=== PATIENT | female | born 1935 | race Caucasian/White ===

== ENCOUNTER 2020-12-03 12:05 | Day surgery (SDC) | payer MEDICARE, OTHER ==
[~2020-12-03] VITALS: Ht 162.6 cm; Wt 86.9 kg
[~2020-12-03 12:05] MED LIST: AMIT25 PO; AMOCLA875 PO; ASPI81CH PO; ASPI81EC; ASPI81EC PO; ATOR10; ATOR20 PO; Amoxicillin500 MG; CELE200; CEPH250A PO; CEPH500 PO; CHOL10002 PO; CYAN500 PO; CYCL10 PO; DIGO.125; DIGO.125 PO; DISO150 PO; DOCU100 PO; DOXA4 PO; ELIQUIS5 MG; ERGO400 PO; ESOM20 PO; FURO40; GABA100 PO; LISI20; LISI20 PO; LORA.5 PO; LORA1; LORA1 PO; METO100; METO100 PO; METO100ER; METO50 PO; Nexium40 MG; OMEP20ER; OXYACE7.5T PO; OXYC10TA19 PO; POTA8; Percocet 5-3251 EACH PO; SPIR25; SPIR25 PO; TEMA15; TEMA15 PO; TEMA30; TEMA30 PO; UBID10 PO; VIT B12; WARF2.5 PO; WARF5 PO; Zofran Odt4 MG SL; [UNRECOGNIZED DRUG - CODE]; [UNRECOGNIZED DRUG - CODE] PO
[2020-12-03] MEDS ORDERED: ATORVASTATIN CA20 MG PO (13:06)
[2020-12-03] MEDS ORDERED: DOXAZOSIN MESYLA4 M2 PO (13:07)
[2020-12-03] MEDS ORDERED: Restoril7.5 MG PO (13:07)
[2020-12-03] MEDS ORDERED: LISI20 PO (13:07)
[2020-12-03] MEDS ORDERED: DISOPYRAMIDE PO (13:07)
[2020-12-03] MEDS ORDERED: SPIRONOLACTONE25 MG PO (13:08)
--- NOTE | 2020-12-03 13:58 | NUR ---
12/03/20 1358 Helen Tillman DISCUSSION BETWEEN PATIENT AND DR MAHMOOD AND DECISION WAS MADE TO TRY IV VERSED TO SEE IF THE PATIENT COULD RELAX ENOUGH TO ALLOW BP DONE ON MACHINE. PATIENT IS IN AGREEMENT AND EXCITED AND READY TO TRY THIS. IV VERSED WAS GIVEN AT 1352 AND DARNELL CASAS WHO WILL BE HER SEDATION NURSE IS IN AND EVALUATING PATIENT AT THIS TIME. PATIENT IS STABLE
[2020-12-07] MEDS ORDERED: METO50ER PO (09:15)
== END 2020-12-03 15:11 | disposition home or self-care (01) ==
LOC: ORSCSDS 12:05
PROVIDERS: Internal Medicine Gastroenterology
PROC: 0DB68ZX Excision of Stomach, Via Natural or Artificial Opening Endoscopic, Diagnostic (ICD-10-PCS; principal; 2020-12-03 13:15)
PROC: 0DB58ZX Excision of Esophagus, Via Natural or Artificial Opening Endoscopic, Diagnostic (ICD-10-PCS; principal; 2020-12-03 13:15)
DX: K21.00 Gastro-esophageal reflux disease with esophagitis, without bleeding (principal); K21.9 Gastro-esophageal reflux disease without esophagitis; I10 Essential (primary) hypertension; K31.7 Polyp of stomach and duodenum; I48.91 Unspecified atrial fibrillation; K22.2 Esophageal obstruction; K44.9 Diaphragmatic hernia without obstruction or gangrene; F41.9 Anxiety disorder, unspecified; E78.5 Hyperlipidemia, unspecified; E66.9 Obesity, unspecified; Z68.33 Body mass index [BMI] 33.0-33.9, adult; Z79.899 Other long term (current) drug therapy
CPT/HCPCS: 88305; 88342; J2250; J2704; J7120

== ENCOUNTER 2020-12-06 21:34 | Inpatient (IN) | payer OTHER ==
[~2020-12-06] VITALS: Ht 162.6 cm; Wt 87.3 kg
[~2020-12-06 21:34] MED LIST changes: +ATORVASTATIN CA20 MG PO; +DISOPYRAMIDE PO; +DOXAZOSIN MESYLA4 M2 PO; +Restoril7.5 MG PO; +SPIRONOLACTONE25 MG PO
[2020-12-06 22:27] LABS: BASOPHILS ABSOLUTE AUTO 0.03 K/mm3 (0.00-0.23); BASOPHILS PERCENT AUTO 0 % (0-2); EOSINOPHILS ABSOLUTE AUTO 0.06 K/mm3 (0.00-0.68); EOSINOPHILS PERCENT AUTO 1 % (0-6); Hematocrit 39.2 % (33.0-51.0); Hemoglobin 14.6 g/dL (11.5-16.0); IMMATURE GRAN ABSOLUTE AUTO 0.03 K/mm3 (0.00-0.10); IMMATURE GRAN PERCENT AUTO 0 % (0-1); LYMPHOCYTES ABSOLUTE AUTO 2.75 K/mm3 (0.84-5.20); LYMPHOCYTES PERCENT AUTO 24 % (21-46); MONOCYTES ABSOLUTE AUTO 1.12 K/mm3 (0.16-1.47); MONOCYTES PERCENT AUTO 10 % (4-13); Mean Corpuscular HGB 32.4 pg (26.0-34.0); Mean Corpuscular HGB Conc 37.2 g/dL (31.5-36.5); Mean Corpuscular Volume 87 fL (80-100); Mean Platelet Volume 9.8 fL (9.1-12.4); NEUTROPHILS ABSOLUTE AUTO 7.62 K/mm3 (1.96-9.15); NEUTROPHILS PERCENT AUTO 66 % (41-73); Platelet Count 258 K/mm3 (150-400); RDW Standard Deviation 38.5 fL (35.1-46.3); Red Blood Cell Count 4.51 M/mm3 (3.80-5.20); White Blood Cell Count 11.61 K/mm3 (4.00-11.30)
[2020-12-06 22:47] LABS: Alanine Aminotransfer (ALT/SGP 25 U/L (12-78); Albumin, Blood 3.8 g/dL (3.4-5.0); Albumin/Globulin Ratio 1.4 (0.8-1.8); Alk Phos 78 U/L (50-136); Anion Gap 8 mmol/L (6-16); Aspartate Aminotrans (AST/SGOT 20 U/L (12-37); Bilirubin, Total 0.8 mg/dL (0.1-1.0); Blood Urea Nitrogen 17 mg/dL (8-24); Bun/Creatinine Ratio 20.2 (12.0-20.0); CO2, Blood 26 mmol/L (21-32); Calcium, Blood 8.2 mg/dL (8.5-10.1); Chloride, Blood 89 mmol/L (98-108); Creatinine, Blood 0.84 mg/dL (0.40-1.00); Globulin, Blood 2.8 g/dL (2.2-4.0); Glomerular Filtration Rate >60 (60-); Glucose, Blood 83 mg/dL (70-99); Potassium, Blood 4.2 mmol/L (3.5-5.5); Sodium, Blood 123 mmol/L (136-145); Total Protein, Blood 6.6 g/dL (6.4-8.2); Troponin I 0.123 ng/mL (0.000-0.040)
--- NOTE | 2020-12-07 06:41 | NUR ---
ASSUMPTION OF CARE PATIENT ARRIVED TO UNIT VIA GURNEY AT 0420. AMBULATED SELF TO BED. A/O, REPORTS NAUSEA AND BLOATED ABDOMEN. ADMISSION AND ASSESSMENT COMPLETED ON PAPER COMPUTERS WERE DOWN. UPON ARRIVAL PATIENT NOTED TO BE HYPERTENSIVE WITH SBP 180-190. HYDRALAZINE WAS GIVEN WELL ZOFRAN WITH NO EFFECT TO SBP. HEART RATE STABLE IN THE 60'S AND SPO2 ABOVE 95% ON ROOM AIR. REPORTED PATIENT'S DISCOMFORTS AND HIGH SBP TO DR. JOHN AT 0548 WHO DIRECTED TO GIVE THE MEDICATIONS MORE TIME TO WORK. 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 SHE BEGAN STATING HER IV PLACEMENT MADE HER ANXIOUS, NOT KNOWING WHAT IS GOING TO HAPPEN HAS MADE HER ANXIOUS, AND THE BLOOD PRESSURE CUFF ON HER ARM CAUSES ANXIETY. RN ASSISTED PATIENT TO CHAIR FOR REPOSITIONING, REMOVED BLOOD PRESSURE CUFF AND PROVIDED DIET PEPSI AND WATER PER REQUEST. 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 SHE DENIED ANY PAIN, SAID THERE ISN'T ANYTHING MUCH TO DO JUST REST BUT WANTED TO INFORM RN JUST SO MEDICAL STAFF WERE AWARE. PATIENT STATED HER ANXIETY WAS IMPROVING BUT HER STOMACH STILL DIDN'T FEEL BACK TO NORMAL. PATIENT NOTED TO BE BURPING, STOMACH IS FIRM, NON-TENDER. PATIENT REQESTING TUMS, NO ORDERS FOR TUMS AT THIS TIME. AWAITING PHYSICIANS TO CHANGE SHIFT TO CLARIFY PATIENT'S NEEDS AND MEDICATIONS. PATIENT REMAINS UP IN CHAIR, CALL LIGHT IN REACH, WILL REPORT TO ONCOMING RN.
--- NOTE | 2020-12-07 07:55 | NUR ---
0730 Report received from Renetta Nichole RN. Pt awake, sitting in chair c/o headache. Also c/o numbness and tingling in right hand, states this just started. Noted she is having obvious difficulty forming her sentences, has a right lateral tongue deviation. Dr. Santoro was called and Stat CT ordered. blood pressure is still high, reported to the doctor. PT was given IV zofran for nausea as well as IV lopressor before being accompanied by RN to CT scan.
[2020-12-07 08:46] LABS: Thyroid Stimulating Hormone 0.403 uIU/mL (0.360-4.800); Troponin I 0.094 ng/mL (0.000-0.040)
[2020-12-07] MEDS ORDERED: ELIQUIS5 M2 PO (09:10)
[2020-12-07] MEDS ORDERED: ATORVASTATIN CA80 M1 PO (09:11)
[2020-12-07] MEDS ORDERED: DISO150 PO (09:12)
[2020-12-07] MEDS ORDERED: Cardura4 MG PO (09:13)
[2020-12-07] MEDS ORDERED: ZESTRIL40 M1 PO (09:14)
[2020-12-07] MEDS ORDERED: METO50 PO (09:15)
[2020-12-07] MEDS ORDERED: ALDACTONE25 MG PO (09:16)
[2020-12-07] MEDS ORDERED: RESTORIL15 M1 PO (09:18)
--- NOTE | 2020-12-07 10:00 | NUR ---
CT scan was negative, reported to Dr. Santoro when she rounded earlier. PT was started on nicardipine GTT and made ICU status. Pt's nausea was resolving after the CT scan, and was able to take oral lisinopril. Dr Brown also came to see the patient, and stress test was ordered. At this time, the pt is no longer having difficulty speaking, states that her stomach is "off" but no nausea. She was given TUMS for relief. Oral medication was taken and tolerated by the pt. Nicardipine gtt continuing.
--- NOTE | 2020-12-07 11:32 | NUR ---
Call to daughter Jaycee this morning after Dr. Santoro's rounds, and also at 11 am to update her on pt condition. Jaycee was able to talk to the pt at this time by phone.
--- NOTE | 2020-12-07 12:41 | NUR ---
Continuing to keep NPO for resting portion of stress test today. Call to Dr. Brown to clarify which type of stress test for tomorrow. Lexiscan orders put in for heart center in [facility]. Pt appears to be sleeping restfully at this time. Blood pressures are trending down, slowly, Nicardipine Gtt is still infusing at 2.5 cc/hour as it was since initiation this morning.
--- NOTE | 2020-12-07 13:44 | NUR ---
1300 Nicardipine gtt turned off after phone conversation with dr. Santoro. AT this time, pt is eating cheese and crackers and milk after starting resting portion of stress test. Echocardiogram also will be done shortly. Pt states that her symptoms earlier of numbness/tingling have not returned.
[2020-12-07 14:24] LABS: CHOL/HDL RATIO 2.2; Cholesterol 108 mg/dL (50-200); HDL Cholesterol 49 mg/dL (>39); LDL/HDL RATIO 0.8; Low Density Lipoprotein Chol 40 mg/dL (0-110); Sodium, Blood 123 mmol/L (136-145); Triglycerides 97 mg/dL (30-160); Very Low Density Lipoprot Chol 19 mg/dL (6-32)
--- NOTE | 2020-12-07 15:29 | NUR ---
Pt returned from nuclear medication (resting portion) as well as MRI. Requesting TUMS for GERD. No nausea/vomiting. Blood pressure is elevated again; will call attending MD for orders
--- NOTE | 2020-12-07 15:37 | NUR ---
nicardipine gtt restarted at this time. Pt lying down in bed, daughter Solomon at bedside. Pt was given TUMS for heart burn.
--- NOTE | 2020-12-07 16:47 | NUR ---
Catapres given at this time for systolic pressure greater than 160 mmHG.
--- NOTE | 2020-12-07 17:30 | NUR ---
Pt continues to have heart burn, burping without nausea nor vomiting. Sitting up in chair, now eating dinner. STates that she might feel better after eating; she thinks that the oral medications on empty stomach today may have aggravated her stomach upset.
--- NOTE | 2020-12-07 17:49 | NUR ---
Nicardipine gtt increased to 5 mg/hour. It has been one hour since administration of catapres p.o., and 2 hours since Toprol XL was given.
--- NOTE | 2020-12-07 18:14 | NUR ---
Assisted back to bed after having a little to eat. States that she couldn't swallow the solid food, that it 'just came back up'. No vomiting, but nauseated to the point she couldn't eat the chicken and bread on her dinner tray. Requested ice cream, which she ate with a good appetite. Requesting more ice water. Assisted back to bed. No complaints except that foods taste "too sweet" ever since she had her endoscopy on Sunday.
--- NOTE | 2020-12-07 18:17 | NUR ---
PT DECLINED OFFER OF FULL LIQUID DIET TO ACCOMODATE HER NEEDS.
--- NOTE | 2020-12-07 18:20 | NUR ---
NICARDIPINE TURNED DOWN TO 2.5MG/HOUR AFTER SYSTOLIC OF 135 MM HG
--- NOTE | 2020-12-07 18:35 | NUR ---
NICARDIPINE GTT OFF. PT IS LYING IN BED, LISTENING TO MUSIC. EYES CLOSED, OPENS EYES AND ANSWERS WHEN SPOKEN TO.
--- NOTE | 2020-12-07 19:45 | NUR ---
PT IS ALERT AND ORIENTED X3. PT FOLLOWS ALL INSTRUCTIONS GIVEN, RESPONDS APPROPRIATELY TO ALL QUESTIONS ASKED. PT UP TO BRP WITH SBA - STABLE AND TOLERATED AMBULATION WITHOUT COMPLICATIONS. PT'S ONLY COMPLAINT IS NAUSEA, AND BURPING - SEE EMAR FOR FOLLOW UP. DENIES ANY URINARY COMPLICATIONS. PT DENIES A HEADACHE, CHEST PAIN, SOB, OR NUMBNESS AND TINGLING. FLUIDS AT BEDSIDE. BED IN LOW POSITION. CALL LIGHT WITHIN REACH.
--- NOTE | 2020-12-07 20:44 | NUR ---
REPORT GIVEN TO DARNELL BENJAMIN.
[2020-12-08 04:21] LABS: Anion Gap 9 mmol/L (6-16); Blood Urea Nitrogen 13 mg/dL (8-24); Bun/Creatinine Ratio 17.3 (12.0-20.0); CO2, Blood 24 mmol/L (21-32); Chloride, Blood 84 mmol/L (98-108); Creatinine, Blood 0.75 mg/dL (0.40-1.00); Glomerular Filtration Rate >60 (60-); Glucose, Blood 131 mg/dL (70-99); Potassium, Blood 3.4 mmol/L (3.5-5.5); Sodium, Blood 117 mmol/L (136-145)
[2020-12-08 05:21] LABS: Thyroid Stimulating Hormone 0.321 uIU/mL (0.360-4.800); Uric Acid, Blood 3.9 mg/dL (2.6-6.0)
[2020-12-08 06:19] LABS: BASOPHILS ABSOLUTE AUTO 0.02 K/mm3 (0.00-0.23); BASOPHILS PERCENT AUTO 0 % (0-2); EOSINOPHILS ABSOLUTE AUTO 0.04 K/mm3 (0.00-0.68); EOSINOPHILS PERCENT AUTO 0 % (0-6); Hematocrit 37.7 % (33.0-51.0); IMMATURE GRAN ABSOLUTE AUTO 0.04 K/mm3 (0.00-0.10); IMMATURE GRAN PERCENT AUTO 0 % (0-1); LYMPHOCYTES ABSOLUTE AUTO 1.84 K/mm3 (0.84-5.20); LYMPHOCYTES PERCENT AUTO 15 % (21-46); MONOCYTES ABSOLUTE AUTO 1.01 K/mm3 (0.16-1.47); MONOCYTES PERCENT AUTO 8 % (4-13); Mean Corpuscular Volume 85 fL (80-100); Mean Platelet Volume 9.9 fL (9.1-12.4); NEUTROPHILS ABSOLUTE AUTO 9.42 K/mm3 (1.96-9.15); NEUTROPHILS PERCENT AUTO 76 % (41-73); Platelet Count 239 K/mm3 (150-400); RDW Coefficient Variation 11.8 % (11.7-14.2); Red Blood Cell Count 4.44 M/mm3 (3.80-5.20); White Blood Cell Count 12.37 K/mm3 (4.00-11.30)
[2020-12-08 06:20] LABS: Hemoglobin 14.4 g/dL (11.5-16.0); Mean Corpuscular HGB 32.4 pg (26.0-34.0)
[2020-12-08 06:23] LABS: Mean Corpuscular HGB Conc 38.2 g/dL (31.5-36.5)
--- NOTE | 2020-12-08 06:54 | NUR ---
SHIFT SUMMARY NIGHT WENT ON PT BECAME MORE CONFUSED. AT 01:00 ATTEMPTED TO GIVE MELATONIN, PT EXPERIENCING DEMENTIA-LIKE SYMPTOMS, INCREASED CONFUSION, WOULD PLACE PILL IN MOUTH THEN IMMEDIATELY TAKE IT OUT, AT ONE POINT SWATTING AT ME TELLING ME TO GO AWAY. GAVE 0.5 MG ATIVAN, PT SLEPT SOLIDLY FOR ABOUT 40 MINUTES, THEN WOKE UP TO PICKING AT EVERYTHING, LINES, CORDS, GOWN, SKIN. PT C/O NAUSEA PRIOR TO ATIVAN DOSAGE, GAVE ZOFRAN WELL. VSS. ASSESSMENT IS CHARTED. WILL CONTINUE TO MONITOR.
--- NOTE | 2020-12-08 07:41 | NUR ---
PHARMACY FAXED FOR 3% SALINE AND POTASSIUM. PT LYING CALMLY IN BED AT THIS TIME, NADN. ATTEMPTED TO REACH DR BRYSON FOR INTERIANO ORDER TO BEGIN 24 HOUR URINE COLLECTION PT IS CONFUSED AND AGITATED WHEN INTERACTED WITH
[2020-12-08 08:10] LABS: Source, Urine Catheter
[2020-12-08 08:16] LABS: Appearance, Urine Hazy (Clear); Bilirubin, Urine Neg (Neg); Blood, Urine Neg (Neg); Color, Urine Yellow (P-Yellow); Glucose Qualitative, Urine Neg (Neg); Ketones, Urine Neg (Neg); Leukocyte Esterase, Urine 1+ (Neg); Nitrite, Urine Neg (Neg); Protein, Urine 2+ (Neg); Specific Gravity, Urine 1.015 (1.003-1.022); Urobilinogen, Urine NORM (Normal)
--- NOTE | 2020-12-08 08:16 | NUR ---
DMIT: 12/07/20 DISCHARGE: TBD DX: [facility] CC: Jay DE RESIDENCE: HOME - [address] [place] [address] [facility] [place] [id number] CAREGIVER: PEG NAIR, FAMILY MEMBER, PMH: ATRIAL FIBRILLATION, HTN, HLD, GERD DME NEEDS: CCM: NONE HOME HEALTH: NONE
--- NOTE | 2020-12-08 08:25 | NUR ---
16FR INTERIANO INSERTED TO BEGIN 24 HOUR URINE COLLECTION PT TOO CONFUSED AND AGITATED TO COLLECT URINE OTHERWISE. POST INSERTION PT CONTINUOUSLY ATTEMPTING TO EXIT THE BED, WHEN REFIRECTED STS "I KNOW" OR "I'M NOT DOING ANYTHING" SHE IS EXITING [facility]. VEST APPLIED PT EDUCATED WHY VEST IS BEING PLACED WHICH SHE STS IS "JUST STUPID". URINE BAG PLACED TO DRAIN TO GRAVITY IN ICE. 3% SALINE AND POTASSIUM ARE INFUSING NOW. URINE CULTURE SENT TO LAB POST INTERIANO PLACEMENT.
[2020-12-08 08:49] LABS: Red Blood Cells, Urine 0-2 /hpf (0-2); White Blood Cells, Urine 50-100 /hpf (0-5)
[2020-12-08 08:50] LABS: Amorphous Heavy (0-Heavy); Bacteria Many /hpf; Squamous Epithelial Cells Rare /hpf (Few)
--- NOTE | 2020-12-08 10:00 | NUR ---
SPOKE WITH ERIK FROM [facility] PT WILL NOT BE GOING FOR LEXISCAN THIS AM, PT WILL NOW GET MORNING PO MEDS SHE IS NO LONGER NPO
--- NOTE | 2020-12-08 11:46 | NUR ---
3% SALINE TITRATED TO 15ML/HR PER ORDERS FROM DR SIMMS. PT REMAINS A/O X3, NONREDIRECTABLE PT COMPULSIVE, CONTINUES ATTEMPTING TO EXIT BED. ORDERS PLACED FOR REPEAT SODIUM DRAW AT 1500.
--- NOTE | 2020-12-08 15:11 | NUR ---
PT REMAINS IN VEST SHE CONTINUES TO BE IMPULSIVE, APPEARS TO BE BECMOMING MORE DIRECTABLE SO WILL CONTINUE TO MONITOR FOR POSSIBILITY OF REMOVINF THE VEST. PT A/O X3 OTHERWISE. PT CONTINUES REMOVING BP CUFF, AND REMOVING INTERIANO URINE BAG FROM ICE TO PLACE IT ON HER BEDSIDE STAND.
--- NOTE | 2020-12-08 17:56 | NUR ---
SHIFT NOTE PT REMAINS IN VEST SHE REMAINS IMPULSIVE. PT BECOMES AGITATED WHEN REMINDED WHY SHE IS IN THE VEST. PT WITH POOR APPETITE STS THAT FOOD IS NOT APPEALING TO HER. PT REMAINS WITH ABD DISTENTION, DR BRYSON ORDERED MIRALX AND SIMETHECONE WHICH WERE ADMINISTERED. PT HAS 170 ML LEFT FOR FLUID INTAKE FOR THE SHIFT.
--- NOTE | 2020-12-09 00:34 | NUR ---
PATIENT IS ALERT AND ORIENTED BUT CAN BE FORGETFUL AND HARD TO REDIRECT AT TIMES. MARANDA VEST IN PLACE, PT HIGH FALL RISK. DEMI CALLED AND STARTED PT ON PO SODIUM CHLORIDE AND STOPPED gtt, SEE EMAR. PT CURRENTLY SLEEPING. INTERIANO DRAINING AND ON ICE FOR 24 HOUR URINE. CALL LIGHT IN REACH.
[2020-12-09 04:05] LABS: Anion Gap 8 mmol/L (6-16); Blood Urea Nitrogen 17 mg/dL (8-24); Bun/Creatinine Ratio 19.4 (12.0-20.0); CO2, Blood 24 mmol/L (21-32); Calcium, Blood 8.2 mg/dL (8.5-10.1); Chloride, Blood 92 mmol/L (98-108); Creatinine, Blood 0.88 mg/dL (0.40-1.00); Glomerular Filtration Rate >60 (60-); Glucose, Blood 101 mg/dL (70-99); Magnesium, Blood 1.7 mg/dL (1.6-2.4); Potassium, Blood 3.5 mmol/L (3.5-5.5); Sodium, Blood 124 mmol/L (136-145)
[2020-12-09 04:28] LABS: BASOPHILS ABSOLUTE AUTO 0.02 K/mm3 (0.00-0.23); BASOPHILS PERCENT AUTO 0 % (0-2); EOSINOPHILS ABSOLUTE AUTO 0.03 K/mm3 (0.00-0.68); EOSINOPHILS PERCENT AUTO 0 % (0-6); Hematocrit 36.6 % (33.0-51.0); Hemoglobin 13.7 g/dL (11.5-16.0); IMMATURE GRAN ABSOLUTE AUTO 0.05 K/mm3 (0.00-0.10); IMMATURE GRAN PERCENT AUTO 0 % (0-1); LYMPHOCYTES ABSOLUTE AUTO 1.59 K/mm3 (0.84-5.20); LYMPHOCYTES PERCENT AUTO 14 % (21-46); MONOCYTES ABSOLUTE AUTO 1.38 K/mm3 (0.16-1.47); MONOCYTES PERCENT AUTO 12 % (4-13); Mean Corpuscular HGB 32.4 pg (26.0-34.0); Mean Corpuscular HGB Conc 37.4 g/dL (31.5-36.5); Mean Corpuscular Volume 87 fL (80-100); Mean Platelet Volume 9.9 fL (9.1-12.4); NEUTROPHILS ABSOLUTE AUTO 8.44 K/mm3 (1.96-9.15); NEUTROPHILS PERCENT AUTO 73 % (41-73); Platelet Count 213 K/mm3 (150-400); RDW Coefficient Variation 12.2 % (11.7-14.2); RDW Standard Deviation 38.3 fL (35.1-46.3); Red Blood Cell Count 4.23 M/mm3 (3.80-5.20); White Blood Cell Count 11.51 K/mm3 (4.00-11.30)
--- NOTE | 2020-12-09 05:56 | NUR ---
SHIFT SUMMARY PATIENT ALERT AND ORIENTED AND FORGETFULL AT TIMES STILL. FOR THE MOST PART COOPERATIVE WITH CARE AND BECOMING EASIER TO REDIRECT AND HAS BEEN PULLING AT STUFF LESS. PLEASANT ALL SHIFT. PRN BP MEDICATION GIVEN SEE EMAR. PT SLEPT PART OF THE SHIFT. INTERIANO DRAINING. REPOSITIONED Q2, 1 PERSON ASSIST. DENIES CP/PRESSURE. CALL LIGHT IN REACH.
--- NOTE | 2020-12-09 13:18 | NUR ---
REASSESSMENT PT HAS BEEN FULLY ORIENTED THIS SHIFT SO MARANDA VEST REMOVED THIS MORNING. HER SBP IS ANYWHERE FROM 130-160S. SR. LUNGS ARE CLEAR, RA. SPOKE WITH NUC MED THIS MORNING AND STRESS TEST IS THIS AFTERNOON SO RECEIVED OK FOR PT TO HAVE BREAKFAST AND MORNING MEDS, THEN BE NPO. PT GOT UP AND WORKED WITH PHYSICAL THERAPY AND OT. CURRENTLY SHE IS RESTING. SPOKE WITH HER DAUGHTER AND PROVIDED UPDATE. CONTINUING TO MONITOR.
--- NOTE | 2020-12-09 17:27 | NUR ---
SHIFT SUMMARY PT'S SBP HAS BEEN FROM 130-170S TODAY. SHE IS ON A 1L FLLUID RESTRICTION BUT HAS BEEN ASKING FOR WATER ALL AFTERNOON STATING "I'M JUST GOING TO GO HOME AND DRINK WATER ANYWAYS." REASONING FOR FLUID RESTRICTION EXPLAINED TO PT, BUT SHE STILL WANTS TO DRINK MORE WATER. LUNGS ARE CLEAR, RA. SR. POOR APPETITE. SHE HAD SOME NAUSEA THIS MORNING AND THIS AFTERNOON DURING THE LEXISCAN. SHE HAD A BM THIS MORNING. HER DAUGHTER CALLED AND WAS UPDATED. CONTINUING TO MONITOR.
--- NOTE | 2020-12-09 22:36 | NUR ---
SHIFT ASSESSMENT ASSUMED CARE OF PT @ 1900, REPORT RECEIVED FROM DARNELL SHELLEY. PT A&OX4. SITTING UPRIGHT IN BED WATCHING TV. REQUESTING WATER. INFORMED PT OF HER FLUID RESTRICTION AND GIVEN ICE WATER FOR EVENING MEDS. PT C/O MILD LOW BACK PAIN AFTER STRESS TEST TODAY, ABLE TO TOLERATE PAIN WITH POSITIONING AT THIS TIME. BP SLOWLY INCREASING T/O EVENING, MEDICATED WITH PRN NICARDIPINE. INTERIANO CATH DRAINING TO GRAVITY. CALL LIGHT WITHIN REACH.
--- NOTE | 2020-12-10 02:06 | NUR ---
UPDATE PT CONTINUES TO DENY CP. INTERMITTENTLY C/O SOB c O2 SATS @ 98-99% ON RA. PT ADMITS TO OCCASIONAL ANXIETY, PLACED ON 1LPM O2 VIA NC FOR ABOUT AN HOUR, SEEMED TO HELP PT RELAX. ALSO RECEIVED ORDERS FOR PRN ATIVAN, HAVE NOT NEEDED TO ADMINSTER YET. PT CURRENTLY RESTING WELL c O2 ON SB.
[2020-12-10 03:36] LABS: BASOPHILS ABSOLUTE AUTO 0.03 K/mm3 (0.00-0.23); BASOPHILS PERCENT AUTO 0 % (0-2); EOSINOPHILS ABSOLUTE AUTO 0.01 K/mm3 (0.00-0.68); EOSINOPHILS PERCENT AUTO 0 % (0-6); Hematocrit 37.1 % (33.0-51.0); Hemoglobin 13.7 g/dL (11.5-16.0); IMMATURE GRAN ABSOLUTE AUTO 0.02 K/mm3 (0.00-0.10); IMMATURE GRAN PERCENT AUTO 0 % (0-1); LYMPHOCYTES PERCENT AUTO 8 % (21-46); MONOCYTES ABSOLUTE AUTO 0.87 K/mm3 (0.16-1.47); MONOCYTES PERCENT AUTO 10 % (4-13); Mean Corpuscular HGB 32.4 pg (26.0-34.0); Mean Corpuscular HGB Conc 36.9 g/dL (31.5-36.5); Mean Corpuscular Volume 88 fL (80-100); Mean Platelet Volume 9.8 fL (9.1-12.4); NEUTROPHILS ABSOLUTE AUTO 7.46 K/mm3 (1.96-9.15); NEUTROPHILS PERCENT AUTO 82 % (41-73); Platelet Count 188 K/mm3 (150-400); RDW Coefficient Variation 12.3 % (11.7-14.2); RDW Standard Deviation 39.2 fL (35.1-46.3); Red Blood Cell Count 4.23 M/mm3 (3.80-5.20); White Blood Cell Count 9.09 K/mm3 (4.00-11.30)
[2020-12-10 03:52] LABS: Bun/Creatinine Ratio 24.8 (12.0-20.0); Calcium, Blood 7.8 mg/dL (8.5-10.1); Creatinine, Blood 0.93 mg/dL (0.40-1.00); Potassium, Blood 3.8 mmol/L (3.5-5.5)
[2020-12-10 05:30] LABS: C DIFFICILE DNA NEGATIVE (Negative)
--- NOTE | 2020-12-10 06:21 | NUR ---
SHIFT SUMMARY PT REMAINS A&OX4. DID NOT HAVE ANY BOUTS OF CONFUSION OR RESTLESSNESS LAST NIGHT. ABLE TO SLEEP WELL FOR MOST OF THE NIGHT. MEDICATED c PRN CLONIDINE X 2. INTERIANO CATH DRAINING DAYAMI URINE. PT WITH 4 BOUTS OF DIARRHEA THIS AM. NO OTHER SIGNIFICANT CHANGES. REPORT TO ONCOMING NURSE.
--- NOTE | 2020-12-10 08:00 | NUR ---
PT LAYING IN BED, ASSISTED UP TO TOILET, SHE REQUESTED INTERIANO BE REMOVED, THIS WAS REMOVED INTACT SHE IS ABLE TO GET OOB, A/OX3, PLEASANT AND COOPERATIVE WITH CARE, FOLLOWS COMMANDS WELL, DENIES PAIN AT THIS TIME, BUT DOES REPORT HER STRESS TEST YESTERDAY CAUSED SOME BACK PAIN GETTING ON A HARD TABLE, LUNGS ARE CLEAR DIM IN BASES, RESP EVEN AND UNLABORED, NO COUGH NOTED, HRR, HEART MONITOR IN PLACE RUNNING SR PER MONITOR, SEE STRIP, NO EDEMA NOTED, PPP+1, CAP REFILL <3SEC, V.S. STABLE, AFEBRILE, PIV TO RFA, AND POWER GLIDE TO TC, SITES ARE CLEAR PIV A BIT PINK, WILL REMOVE, BTX4, ABD FLAT SOFT NONTENDER, REPORTS DIARRHEA DURRING THE NIGHT, HELD MIRALAX, DID GET UP AND THOUGHT SHE NEEDED TO GO AGAIN, BUT NO STOOL, SKIN C/W/D, KEY RESENDEZ, CALL LIGHT IN REACH.
--- NOTE | 2020-12-10 17:22 | NUR ---
Update 12/10/20: Pt. reports living alone. Daughter and son in-law live on property. Plan for other daughter to come stay with her once discharged from the hospital. Concerning that pt. has not been willing to work with PT/OT. Per notes they plan to try again with her on Sunday.
[2020-12-10 17:48] LABS: Source, Urine Clean Catch
[2020-12-10 17:55] LABS: Appearance, Urine Clear (Clear); Bilirubin, Urine Neg (Neg); Blood, Urine 2+ (Neg); Color, Urine Yellow (P-Yellow); Glucose Qualitative, Urine Neg (Neg); Ketones, Urine Neg (Neg); Leukocyte Esterase, Urine 2+ (Neg); Nitrite, Urine Pos (Neg); Protein, Urine 1+ (Neg); Specific Gravity, Urine 1.015 (1.003-1.022); Urobilinogen, Urine NORM (Normal)
--- NOTE | 2020-12-10 17:59 | NUR ---
pt having multiple loose stools today, Dr. Ybarra ordered probiotics, she was started on that, will give immodium if not slowing, pt daughter in to visit, no further changes this shift, u/a sent, clean catch. call light in reach.
[2020-12-10 18:34] LABS: White Blood Cells, Urine 25-50 /hpf (0-5)
[2020-12-10 18:35] LABS: Bacteria Many /hpf; Red Blood Cells, Urine 0-2 /hpf (0-2); Squamous Epithelial Cells Few /hpf (Few)
--- NOTE | 2020-12-10 21:45 | NUR ---
ASSUMED CARE OF PATIENT AT APPROXIMATELY 1910 FROM MARINA Oviedo RN. PATIENT ALERT AND ORIENTED X4; SBA W/ FWW TO TOILET. PATIENT DENIES PAIN, NUMBESS, TINGLING, DIZZINESS OR NAUSEA. NPO AT MIDNIGHT FOR SCAN IN AM. SB/SR ON HEART MONITOR; OXYGEN SATURATION ABOVE 90% ON ROOM AIR. PATIENT HAVING MULTIPLE EPISODES OF DIARRHEA; INCONTINENT BEFORE GETTING OUT OF BED AND GOING TO TOILET; REPORTS SHE HAS HAD 10 EPISODES TODAY; ATTENDS IN PLACE; IMMODIUM GIVEN RIGHT BEFORE SHIFT CHANGE. CALLED DR. PEARSON AT 0 TO REPORTS PATIENT'S SYSTOLIC IN 170'S AND HEART RATE IN 57-71; ORDERS FOR PRN IV HYDRALAZINE Q6 FOR A SYSTOLIC OVER 160.
[2020-12-11 03:40] LABS: BASOPHILS ABSOLUTE AUTO 0.03 K/mm3 (0.00-0.23); BASOPHILS PERCENT AUTO 0 % (0-2); EOSINOPHILS ABSOLUTE AUTO 0.05 K/mm3 (0.00-0.68); EOSINOPHILS PERCENT AUTO 1 % (0-6); Hematocrit 38.3 % (33.0-51.0); Hemoglobin 14.3 g/dL (11.5-16.0); IMMATURE GRAN ABSOLUTE AUTO 0.02 K/mm3 (0.00-0.10); IMMATURE GRAN PERCENT AUTO 0 % (0-1); LYMPHOCYTES ABSOLUTE AUTO 1.93 K/mm3 (0.84-5.20); LYMPHOCYTES PERCENT AUTO 22 % (21-46); MONOCYTES ABSOLUTE AUTO 1.12 K/mm3 (0.16-1.47); MONOCYTES PERCENT AUTO 13 % (4-13); Mean Corpuscular HGB Conc 37.3 g/dL (31.5-36.5); Mean Corpuscular Volume 89 fL (80-100); Mean Platelet Volume 9.7 fL (9.1-12.4); NEUTROPHILS ABSOLUTE AUTO 5.47 K/mm3 (1.96-9.15); NEUTROPHILS PERCENT AUTO 64 % (41-73); Platelet Count 213 K/mm3 (150-400); RDW Coefficient Variation 12.1 % (11.7-14.2); RDW Standard Deviation 39.4 fL (35.1-46.3); Red Blood Cell Count 4.33 M/mm3 (3.80-5.20); White Blood Cell Count 8.62 K/mm3 (4.00-11.30)
[2020-12-11 03:58] LABS: Albumin, Blood 3.4 g/dL (3.4-5.0); Anion Gap 6 mmol/L (6-16); Blood Urea Nitrogen 23 mg/dL (8-24); Bun/Creatinine Ratio 24.9 (12.0-20.0); CO2, Blood 23 mmol/L (21-32); Calcium, Blood 8.1 mg/dL (8.5-10.1); Chloride, Blood 100 mmol/L (98-108); Creatinine, Blood 0.92 mg/dL (0.40-1.00); Glomerular Filtration Rate 58 (60-); Glucose, Blood 94 mg/dL (70-99); Phosphorus, Blood 2.5 mg/dL (2.5-4.9); Potassium, Blood 3.8 mmol/L (3.5-5.5); Sodium, Blood 129 mmol/L (136-145)
--- NOTE | 2020-12-11 06:13 | NUR ---
PATIENT SLEPT ABOUT SEVEN HOURS; PATIENT DIDNT HAVE ANY MORE DIARRHEA LAST NIGHT. REPORTED HEADACHE THIS MORNING DUE TO NOISE IN UNIT; MEDICATED PER EMAR AND GIVEN COOL WASH CLOTH. MEDICATED ONCE FOR BLOOD PRESSURE WITH GOOD RESULTS.
--- NOTE | 2020-12-11 10:06 | NUR ---
PT NO COMPLAINS THIS MORNING DIDNT HAVE ANY EPISODES OF DIARRHEA, HAS MILD HEAD ACHE AND IS TOLERABLE, BP SYSTOLIC 150'S. PT ATE SOME BREAKFAST NO ISSUES. ON 1500L FR PT COMPLIANT. PT TO POSSIBLY DC TOMORROW IF STABLE. NO OTHER ISSUES ENCOUNTERED REPORT GIVEN TO TESS PATRICK, PT WAS TRANSFERRED TO [facility] VIA WHEELCHAIR ACCOMPANIED BY PCT ALL BELONGINGS SENT WITH PT.
[2020-12-11 10:46] LABS: SARS-Cov-2 (COVID-19) PCR, MMC NEGATIVE (NEGATIVE)
--- NOTE | 2020-12-11 17:29 | NUR ---
SHIFT SUMMARY: PT WAS ICU TRANSFER THIS SHIFT. VSS, SLIGHTLY HYPERTENSIVE BUT NOT REQUIRING MEDICATIONS AT THIS TIME. NSR/SINUS JEANETTE ON TELE. DENIES HEADACHE, AMBULATORY WITH THERAPY. COVID NEGATIVE. PT'S DAUGHTER STATES THAT PT HAS GI HISTORY THAT MAKES HER CONSTIPATED AND THEN FREQUENT BOUTS OF DIARRHEA AT TIMES. POSSIBLE DC TOMORROW. NO ACUTE NEEDS OR CONCERNS AT THIS TIME.
--- NOTE | 2020-12-12 04:07 | NUR ---
PATIENT HAD NO COMPLAINT OF SOB, PAIN OR DISCOMFORT OVERNIGHT. TELEMETRY REMAINED SINUS JEANETTE IN 50-60'S. BLOOD PRESSURES OVERNIGHT BEGAN IN THE 170'S SYSTOLIC TO 160/59 THIS MORNING AT 0330. PATIENT IS ALERT AND ORIENTED AND COOPERATIVE WITH CARE
[2020-12-12 05:53] LABS: Hematocrit 36.9 % (33.0-51.0); Hemoglobin 13.6 g/dL (11.5-16.0)
[2020-12-12 06:08] LABS: Albumin, Blood 3.2 g/dL (3.4-5.0); Anion Gap 7 mmol/L (6-16); Blood Urea Nitrogen 19 mg/dL (8-24); Bun/Creatinine Ratio 21.9 (12.0-20.0); CO2, Blood 23 mmol/L (21-32); Calcium, Blood 8.6 mg/dL (8.5-10.1); Chloride, Blood 103 mmol/L (98-108); Creatinine, Blood 0.87 mg/dL (0.40-1.00); Glomerular Filtration Rate >60 (60-); Glucose, Blood 103 mg/dL (70-99); Magnesium, Blood 1.9 mg/dL (1.6-2.4); Phosphorus, Blood 3.2 mg/dL (2.5-4.9); Potassium, Blood 3.7 mmol/L (3.5-5.5); Sodium, Blood 133 mmol/L (136-145)
--- NOTE | 2020-12-12 07:00 | NUR ---
ASSUMED CARE: PT RESTING IN BED, NIGHT RN JUST CAME OUT OF ROOM. REPORTS NO DISTRESS AT THIS TIME.
[2020-12-12 09:56] LABS: Free Thyroxine 1.23 ng/dL (0.70-1.60); Triiodothyronine, Free 2.43 pg/mL (2.18-3.98)
[2020-12-12] MEDS ORDERED: Acetaminophen650 M1 PO (10:14)
[2020-12-12] MEDS ORDERED: NORVASC5 MG PO (10:16)
[2020-12-12] MEDS ORDERED: TUMS500 MG PO (10:17)
[2020-12-12] MEDS ORDERED: CEFU250T47 PO (10:18)
[2020-12-12] MEDS ORDERED: LOPE2C PO (10:20)
[2020-12-12] MEDS ORDERED: PANT20 PO (10:21)
[2020-12-12] MEDS ORDERED: VISBIOME 112.51 EACH PO (10:22)
[2020-12-12] MEDS ORDERED: SIME80CH PO (10:22)
[2020-12-12] MEDS ORDERED: METO50ER PO (10:24)
--- NOTE | 2020-12-12 11:28 | NUR ---
DR MILLER ASKED ABOUT PHYSICAL THERAPY EVAL. SPOKE WITH PHYSICAL THERAPIST WHO STATES PT WAS EVALUATED AND WILL BE FOLLOWED UP WITH TOMORROW. WITH CURRENT PLAN FOR DC TO SNF
--- NOTE | 2020-12-12 11:57 | NUR ---
DISCHARGE: PT GIVEN INSTRUCTIONS REGARDING FOLLOW UP APPOINTMENTS AND MEDICATIONS. PT GIVEN NUMBERS TO CALL IF SHE HAD ANY QUESTIONS. POWERGLIDE REMOVED WNL. ESCORTED OUT VIA WHEEL CHAIR BY HOSPITAL STAFF. DENIED QUESTIONS OR CONCERNS.
== END 2020-12-12 11:56 | disposition home or self-care (01) | DRG 304 ==
LOC: ER 21:34 → ICUE 12-07 03:30 → ICUW 12-07 03:30 → ICUE 12-07 04:20 → MEDS 12-11 10:08
PROVIDERS: Family Medicine; Internal Medicine; Internal Medicine Nephrology; Nurse Practitioner; Physician Assistant; ADMIT Family Medicine
DX: I16.1 Hypertensive emergency (principal); I63.89 Other cerebral infarction; N17.9 Acute kidney failure, unspecified; E87.1 Hypo-osmolality and hyponatremia; I24.8 Other forms of acute ischemic heart disease; I16.0 Hypertensive urgency; I48.0 Paroxysmal atrial fibrillation; E78.5 Hyperlipidemia, unspecified; D63.1 Anemia in chronic kidney disease; E87.6 Hypokalemia; G47.00 Insomnia, unspecified; K21.00 Gastro-esophageal reflux disease with esophagitis, without bleeding; Z20.822 Contact with and (suspected) exposure to COVID-19; E83.51 Hypocalcemia; R19.7 Diarrhea, unspecified; I12.9 Hypertensive chronic kidney disease with stage 1 through stage 4 chronic kidney disease, or unspecified chronic kidney disease; N18.9 Chronic kidney disease, unspecified; Z60.2 Problems related to living alone; Z79.01 Long term (current) use of anticoagulants; Z90.49 Acquired absence of other specified parts of digestive tract; Z98.51 Tubal ligation status; Z98.890 Other specified postprocedural states; Z72.89 Other problems related to lifestyle; Z88.2 Allergy status to sulfonamides; Z88.5 Allergy status to narcotic agent; Z88.1 Allergy status to other antibiotic agents; Z88.8 Allergy status to other drugs, medicaments and biological substances; Z91.013 Allergy to seafood; Z79.899 Other long term (current) drug therapy
CPT/HCPCS: 36415; 51702; 70450; 70544; 70551; 71046; 74022; 78452; 80048; 80053; 80061; 80069; 81001; 82530; 82533; 83735; 83930; 84295; 84439; 84443; 84481; 84484; 84550; 85014; 85018; 85025; 87086; 87493; 93005; 93010; 93017; 93306; 93975; 94760; 96374; 97116; 97161; 97166; 97530; 99285-25; A9270; A9500; C1751; C9113; J0360; J0696; J2060; J2405; J2785; J3480; J7050; U0004

== ENCOUNTER 2022-02-18 09:32 | Emergency (ER) | payer MEDICARE, OTHER ==
[~2022-02-18] VITALS: Ht 162.6 cm; Wt 83.9 kg
[~2022-02-18 09:32] MED LIST changes: +ALDACTONE25 MG PO; +ATORVASTATIN CA80 M1 PO; +Acetaminophen650 M1 PO; +CEFU250T47 PO; +Cardura4 MG PO; +ELIQUIS5 M2 PO; +LOPE2C PO; +METO50ER PO; +NORVASC5 MG PO; +ONDA4ODT MM; +PANT20 PO; +RESTORIL15 M1 PO; +SIME80CH PO; +TUMS500 MG PO; +VISBIOME 112.51 EACH PO; +ZESTRIL40 M1 PO
[2022-02-18] MEDS ORDERED: Percocet 7.5-31 EACH PO (12:04)
== END 2022-02-18 12:09 | disposition home or self-care (01) ==
LOC: ER 09:32
DX: M51.16 Intervertebral disc disorders with radiculopathy, lumbar region (principal); M48.061 Spinal stenosis, lumbar region without neurogenic claudication; I48.91 Unspecified atrial fibrillation; I10 Essential (primary) hypertension; Z88.5 Allergy status to narcotic agent; Z88.2 Allergy status to sulfonamides; Z88.8 Allergy status to other drugs, medicaments and biological substances; Z91.048 Other nonmedicinal substance allergy status; Z88.1 Allergy status to other antibiotic agents; Z91.040 Latex allergy status; Z91.013 Allergy to seafood; Z79.899 Other long term (current) drug therapy; Z79.01 Long term (current) use of anticoagulants; Z87.891 Personal history of nicotine dependence
CPT/HCPCS: 96372; 99283; J1885

== ENCOUNTER → 2022-04-12 | Outpatient (CLI) | payer MEDICARE, OTHER ==
[~2022-04-12] MED LIST changes: +Percocet 7.5-31 EACH PO
[2022-04-12 18:18] LABS: Source, Urine Urostomy Bag
[2022-04-12 19:24] LABS: Bacteria Many /hpf; Red Blood Cells, Urine 0-2 /hpf (0-2); Squamous Epithelial Cells Rare /hpf (Few); Transitional Epithelial Cells Rare /hpf (0-Rare)
== END ==
LOC: LAB 13:00 → LAB SHORT 13:00
PROVIDERS: Family Medicine
DX: R82.998 Other abnormal findings in urine (principal); G89.4 Chronic pain syndrome
CPT/HCPCS: 81015; 87077; 87086; 87186

== ENCOUNTER → 2022-10-16 | Outpatient (CLI) | payer MEDICARE, OTHER ==
[2022-10-16 12:54] LABS: Source, Urine Voided
[2022-10-16 15:55] LABS: Bacteria Many /hpf; Squamous Epithelial Cells Mod /hpf (Few)
[2022-10-16 15:56] LABS: Hyaline Casts 0-2 /lpf (0-2)
== END ==
LOC: LAB SHORT 12:00 → LAB 12:00
PROVIDERS: Family Medicine
DX: R82.998 Other abnormal findings in urine (principal)
CPT/HCPCS: 81015; 87077; 87086; 87186

== ENCOUNTER → 2022-12-21 | Outpatient (CLI) | payer MEDICARE, OTHER ==
[2022-12-21 15:07] LABS: Source, Urine Voided
[2022-12-21 16:12] LABS: Bacteria Many /hpf; Red Blood Cells, Urine 0-2 /hpf (0-2); Squamous Epithelial Cells Rare /hpf (Few); Transitional Epithelial Cells Rare /hpf (0-Rare); White Blood Cells, Urine 25-50 /hpf (0-5)
== END ==
LOC: LAB 14:00 → LAB SHORT 14:00
PROVIDERS: Family Medicine
DX: N39.0 Urinary tract infection, site not specified (principal)
CPT/HCPCS: 81015; 87077; 87086; 87186

== ENCOUNTER 2023-03-07 01:57 | Emergency (ER) | payer MEDICARE, OTHER ==
[~2023-03-07] VITALS: Ht 160 cm; Wt 87.1 kg
[2023-03-07 05:25] LABS: BASOPHILS ABSOLUTE AUTO 0.01 K/mm3 (0.00-0.23); BASOPHILS PERCENT AUTO 0 % (0-2); EOSINOPHILS ABSOLUTE AUTO 0.03 K/mm3 (0.00-0.68); EOSINOPHILS PERCENT AUTO 0 % (0-6); Hematocrit 31.4 % (33.0-51.0); Hemoglobin 11.7 g/dL (11.5-16.0); IMMATURE GRAN ABSOLUTE AUTO 0.02 K/mm3 (0.00-0.10); IMMATURE GRAN PERCENT AUTO 0 % (0-1); LYMPHOCYTES ABSOLUTE AUTO 1.42 K/mm3 (0.84-5.20); LYMPHOCYTES PERCENT AUTO 15 % (21-46); MONOCYTES ABSOLUTE AUTO 0.77 K/mm3 (0.16-1.47); MONOCYTES PERCENT AUTO 8 % (4-13); Mean Corpuscular HGB 33.3 pg (26.0-34.0); Mean Corpuscular HGB Conc 37.3 g/dL (31.5-36.5); Mean Corpuscular Volume 90 fL (80-100); NEUTROPHILS ABSOLUTE AUTO 7.36 K/mm3 (1.96-9.15); NEUTROPHILS PERCENT AUTO 77 % (41-73); Platelet Count 211 K/mm3 (150-400); RDW Coefficient Variation 12.9 % (11.7-14.2); RDW Standard Deviation 42.3 fL (35.1-46.3); Red Blood Cell Count 3.51 M/mm3 (3.80-5.20); White Blood Cell Count 9.61 K/mm3 (4.00-11.30)
[2023-03-07] MEDS ORDERED: GABA100 PO (05:33)
[2023-03-07] MEDS ORDERED: DISOPYRAMIDE PO (05:34)
[2023-03-07] MEDS ORDERED: ELIQUIS5 M3 PO (05:34)
[2023-03-07] MEDS ORDERED: OXYCODONE-ACET1 EAC2 PO (05:34)
[2023-03-07] MEDS ORDERED: DOXAZOSIN MESYLA4 M2 PO (05:35)
[2023-03-07] MEDS ORDERED: SPIRONOLACTONE50 MG PO (05:35)
[2023-03-07] MEDS ORDERED: METOPROLOL SUCC25 MG PO (05:36)
[2023-03-07] MEDS ORDERED: PANTOPRAZOLE SO40 M2 PO (05:37)
[2023-03-07] MEDS ORDERED: ATORVASTATIN CA20 MG PO (05:37)
[2023-03-07] MEDS ORDERED: LISI20 PO (05:37)
[2023-03-07] MEDS ORDERED: ESTRADIOL42.5 GM (05:38)
[2023-03-07] MEDS ORDERED: HYDR10 PO (05:38)
[2023-03-07] MEDS ORDERED: AMLODIPINE BESYL5 MG PO (05:38)
[2023-03-07 05:39] VITALS: BP 143/74
[2023-03-07 05:52] LABS: Albumin, Blood 3.9 g/dL (3.4-5.0); Albumin/Globulin Ratio 1.3 (0.8-1.8); Bilirubin, Total 0.7 mg/dL (0.1-1.0); Bun/Creatinine Ratio 19.1 (12.0-20.0); Calcium, Blood 8.7 mg/dL (8.5-10.1); Creatinine, Blood 0.89 mg/dL (0.40-1.00); Globulin, Blood 3.1 g/dL (2.2-4.0)
== END 2023-03-07 08:47 | disposition home or self-care (01) ==
LOC: ER 01:57
PROVIDERS: Emergency Medicine
DX: S02.2XXA Fracture of nasal bones, initial encounter for closed fracture (principal); S02.40DA Maxillary fracture, left side, initial encounter for closed fracture; S02.40CA Maxillary fracture, right side, initial encounter for closed fracture; D64.9 Anemia, unspecified; I48.91 Unspecified atrial fibrillation; I10 Essential (primary) hypertension; Z87.891 Personal history of nicotine dependence; Z79.01 Long term (current) use of anticoagulants; Z79.899 Other long term (current) drug therapy; W18.30XA Fall on same level, unspecified, initial encounter
CPT/HCPCS: 70450; 70486; 80053; 85018; 85025; 99284-25; A9270

== ENCOUNTER → 2023-05-03 | Outpatient (CLI) | payer MEDICARE, OTHER ==
[~2023-05-03] MED LIST changes: +AMLODIPINE BESYL5 MG PO; +ELIQUIS5 M3 PO; +ESTRADIOL42.5 GM; +HYDR10 PO; +METOPROLOL SUCC25 MG PO; +OXYCODONE-ACET1 EAC2 PO; +PANTOPRAZOLE SO40 M2 PO; +SPIRONOLACTONE50 MG PO
[2023-05-03 18:16] LABS: Source, Urine Voided
[2023-05-03 19:50] LABS: Red Blood Cells, Urine 0-2 /hpf (0-2)
[2023-05-03 19:51] LABS: Bacteria Many /hpf; Squamous Epithelial Cells Few /hpf (Few)
== END ==
LOC: LAB SHORT 18:05 → LAB 18:05
PROVIDERS: Family Medicine
DX: N39.0 Urinary tract infection, site not specified (principal)
CPT/HCPCS: 81015; 87077; 87086; 87186

== ENCOUNTER → 2024-01-09 | Outpatient (CLI) | payer MEDICARE, OTHER | LOC: LAB 13:00 → LAB SHORT 13:00 | DX: R30.0 Dysuria (principal) | CPT/HCPCS: 87077; 87086; 87186 ==